=== PATIENT | male | born 1965 | race African-American/Black ===

== ENCOUNTER 2017-02-03 23:32 | Emergency (ER) | payer MEDICAID ==
[~2017-02-03] VITALS: Ht 188 cm; Wt 134.0 kg
[~2017-02-03 23:32] MED LIST: AMIODARONE PO; CARV12.545 PO; CHOL100026 PO; FERR-63 PO; FURO20TA4 PO; LOSA50TA20 PO; RIVA20TA PO
[2017-02-04 01:18] LABS: BASOPHILS % 0.9 % (0.0-2.0); EOSINOPHILS % 1.4 % (0.0-5.0); HEMATOCRIT. 41.2 % (42.0-52.0); HEMOGLOBIN. 13.4 g/dL (14.0-18.0); LYMPHOCYTES % 23.3 % (20.0-50.0); MEAN CORPUSCULAR HGB CONC 32.5 g/dL (31.0-37.0); MEAN CORPUSCULAR VOLUME 95.4 fL (80.0-94.0); MEAN PLATELET VOLUME 7.4 fl (7.4-10.4); MONOCYTES % 8.1 % (2.0-8.0); NEUTROPHILS % 66.3 % (40.0-76.0); PLATELET 126 x1000/uL (130-400); RED BLOOD CELL COUNT 4.32 mill/uL (4.7-6.1); RED CELL DISTRIBUTION WIDTH 13.8 % (11.6-14.6); WHITE BLOOD COUNT 6.6 x1000/uL (4.5-11.0)
[2017-02-04 01:22] LABS: CHLORIDE 106 mEq/L (98-107); INDEX HEMOLYSI 3 (1-3); INDEX ICTERIC 1 (1-4); INDEX LIPEMIC 1 (1-3)
[2017-02-04 01:24] LABS: INR 1.2; PROTHROMBIN TIME 12.8 sec
[2017-02-04 01:35] LABS: ALANINE AMINOTRANSFERASE 25 IU/L (13-61); ALBUMIN 3.6 g/dL (3.4-5.0); ANION GAP 10; CALCIUM 8.9 mg/dL (8.5-10.1); CARBON DIOXIDE 28 mEq/L (21-32); NT PRO B-TYPE NATRIURETIC PEP 1587 pg/mL (5-125); UREA NITROGEN BLOOD 27 mg/dL (7-21); eGFR 39 mL/min (>60)
[2017-02-04] MEDS ORDERED: CYCLOBENZAPRINE 10MG TABLET PO ONE (01:45)
[2017-02-04] MEDS ORDERED: ACETAMINOPHEN WITH CODEINE 300/30MG TABLET PO ONE (01:45)
[2017-02-04 02:34] VITALS: BP 138/84
== END 2017-02-04 07:49 | disposition home or self-care (01) ==
LOC: ER 02-04 07:49
DX: H11.31 Conjunctival hemorrhage, right eye (principal); Z79.899 Other long term (current) drug therapy; I11.0 Hypertensive heart disease with heart failure; I50.9 Heart failure, unspecified
CPT/HCPCS: 36415; 71010; 80053; 83880; 85025; 85610; 93005; 99285; Z7610

== ENCOUNTER 2017-05-01 05:30 | Inpatient (IN) | payer MEDICAID ==
[2017-05-01] VITALS (7 sets, daily range): BP systolic 137–166; BP diastolic 92–108
[~2017-05-01] VITALS: Ht 188 cm; Wt 136.1 kg
[~2017-05-01 05:30] MED LIST changes: +ACET1TAB12 PO; -LOSA50TA20 PO; +SPIR25TA4 PO; +[UNRECOGNIZED DRUG - OTHER] PO
[2017-05-01 06:20] LABS: CLARITY URINE CLEAR (CLEAR); COLOR URINE YELLOW (YELLOW); GLUCOSE URINE NEGATIVE (NEGATIVE); KETONES URINE NEGATIVE (NEGATIVE); LEUKOCYTE ESTERASE URINE NEGATIVE (NEGATIVE); NITRITE URINE NEGATIVE (NEGATIVE); OCCULT BLOOD URINE NEGATIVE (NEGATIVE); PH URINE 5.5 (4.5-8.0); PROTEIN URINE NEGATIVE (NEGATIVE); SPECIFIC GRAVITY URINE 1.024 (1.005-1.030); UROBILINOGEN URINE 0.2 E.U./dL (0.2-1.0)
[2017-05-01 06:21] LABS: HEMATOCRIT. 37.7 % (42.0-52.0); HEMOGLOBIN. 12.5 g/dL (14.0-18.0); MEAN CORPUSCULAR HEMOGLOBIN 31.1 pg (28.0-32.0); MEAN CORPUSCULAR VOLUME 93.6 fL (80.0-94.0); MEAN PLATELET VOLUME 7.9 fl (7.4-10.4); PLATELET 140 x1000/uL (130-400); RED BLOOD CELL COUNT 4.03 mill/uL (4.7-6.1); RED CELL DISTRIBUTION WIDTH 13.8 % (11.6-14.6)
[2017-05-01] MEDS ORDERED: SODIUM CHLORIDE 0.9% 1,000 ML IV SCH (06:40)
[2017-05-01 06:49] LABS: INR 1.1; PARTIAL THROMBOPLASTIN TIME 27.3 sec (24.0-34.0); PROTHROMBIN TIME 10.9 sec
[2017-05-01] MEDS ORDERED: BUPIVACAINE/EPINEPH/PF 0.25%/0.0005 10ML ONE (06:58)
[2017-05-01] MEDS ORDERED: MORPHINE SULFATE/PF 1MG/ML 10ML AMP ONE (06:58)
[2017-05-01] MEDS ORDERED: BACITRACIN 50,000 UNITS/VIAL ONE (06:58)
[2017-05-01] MEDS ORDERED: NORMAL SALINE 0.9% 10 ML SYR ONE (06:59)
[2017-05-01 07:07] LABS: PLATELET ESTIMATE NORMAL
[2017-05-01] MEDS ORDERED: MIDAZOLAM HCL 2 MG/2 ML VIAL ONE (07:44)
[2017-05-01] MEDS ORDERED: FENTANYL CITRATE/PF 50MCG/ML 2ML VIAL ONE ×2 (07:45→09:02)
[2017-05-01] MEDS ORDERED: LIDOCAINE HCL 1% 20ML VIAL (Pyxis) INJ ONE (07:47)
[2017-05-01] MEDS ORDERED: PROPOFOL 200MG/20ML VIAL IV ONE (07:47)
[2017-05-01] MEDS ORDERED: SUCCINYLCHOLINE CHLORIDE 200MG/10ML VIAL IV ONE (07:48)
[2017-05-01] MEDS ORDERED: CEFAZOLIN SODIUM 1000MG/VIAL ONE ×2 (08:05→08:07)
[2017-05-01] MEDS ORDERED: DEXAMETHASONE 4MG/ML 1ML VIAL ONE (08:08)
[2017-05-01] MEDS ORDERED: ONDANSETRON HCL 4MG/2ML VIAL ONE (08:08)
[2017-05-01] MEDS ORDERED: EPHEDRINE SULFATE 50MG/ML VIAL ONE (08:09)
[2017-05-01] MEDS ORDERED: ROCURONIUM BROMIDE 10MG/ML VIAL 5ML IV ONE ×2 (08:12→08:50)
[2017-05-01] MEDS ORDERED: ACETAMINOPHEN 325MG TABLET PO PRN (08:15)
[2017-05-01] MEDS ORDERED: ONDANSETRON HCL 4MG/2ML VIAL IV PRN (08:15)
[2017-05-01] MEDS ORDERED: HYDROCODONE/ACETAMINOPHEN 10/325MG TABLET PO PRN ×2 (08:15)
[2017-05-01] MEDS ORDERED: ALBUMIN HUMAN 12.5G/250ML (5%) IV ONE (08:42)
[2017-05-01] MEDS ORDERED: ENOXAPARIN 40MG/0.4ML SYR SUBCUT SCH (09:00)
[2017-05-01] MEDS ORDERED: SKIN ADHESIVE 0.7 GM EA TOP ONE (09:56)
[2017-05-01] MEDS ORDERED: NEOSTIGMINE METHYLSULFATE 1MG/ML 10 ML VIAL ONE (10:14)
[2017-05-01] MEDS ORDERED: GLYCOPYRROLATE 0.2 MG/ML 2ML VIAL ONE (10:14)
[2017-05-01] MEDS: HYDROMORPHONE HCL/PF 2MG/ML CPJ IV PRN ×2 (11:21→11:32)
[2017-05-01] MEDS: MORPHINE SULFATE 4 MG/ML CPJ (NOT FOR IM USE) IV PRN ×2 (14:40→17:45)
[2017-05-01] MEDS ORDERED: ZOLPIDEM TARTRATE 5MG TABLET PO PRN (16:00)
[2017-05-01] MEDS: CARVEDILOL 25MG TABLET PO SCH ×2 (17:42→21:11)
[2017-05-01] MEDS: CEFAZOLIN 2,000 MG in DEXT 5% WATER 100 ML IV SCH (17:50)
[2017-05-01] MEDS: ENOXAPARIN 30MG/0.3ML SYR SUBCUT SCH (21:10)
[2017-05-02] VITALS (10 sets, daily range): BP systolic 125–171; BP diastolic 78–110
[2017-05-02] MEDS: CEFAZOLIN 2,000 MG in DEXT 5% WATER 100 ML IV SCH ×2 (00:27→09:39)
[2017-05-02] MEDS: CLONIDINE 0.1MG TABLET PO PRN ×2 (00:27→06:06)
[2017-05-02] MEDS: MORPHINE SULFATE 4 MG/ML CPJ (NOT FOR IM USE) IV PRN ×4 (04:43→21:49)
[2017-05-02 06:00] LABS: HEMATOCRIT. 39.6 % (42.0-52.0); MEAN CORPUSCULAR HEMOGLOBIN 30.9 pg (28.0-32.0); MEAN CORPUSCULAR VOLUME 94.1 fL (80.0-94.0); MEAN PLATELET VOLUME 7.6 fl (7.4-10.4); PLATELET 141 x1000/uL (130-400); RED BLOOD CELL COUNT 4.21 mill/uL (4.7-6.1); RED CELL DISTRIBUTION WIDTH 13.7 % (11.6-14.6)
[2017-05-02] MEDS ORDERED: SPIRONOLACTONE 25MG TABLET PO SCH (09:00)
[2017-05-02] MEDS: CARVEDILOL 25MG TABLET PO SCH ×2 (09:39→21:39)
[2017-05-02] MEDS: ENOXAPARIN 30MG/0.3ML SYR SUBCUT SCH ×3 (09:41→21:40)
[2017-05-02] MEDS ORDERED: SODIUM POLYSTYRENE SULFONATE 15 G/60 ML BOT PO NR (13:00)
[2017-05-02 14:33] LABS: PLATELET ESTIMATE NORMAL
[2017-05-02 16:06] LABS: CREATINE KINASE 95 IU/L (39-308)
[2017-05-03] VITALS (8 sets, daily range): BP systolic 100–144; BP diastolic 51–94
[2017-05-03 06:05] LABS: BASOPHILS % 0.1 % (0.0-2.0); EOSINOPHILS % 0.1 % (0.0-5.0); HEMATOCRIT. 37.7 % (42.0-52.0); HEMOGLOBIN. 12.6 g/dL (14.0-18.0); LYMPHOCYTES % 7.6 % (20.0-50.0); MEAN CORPUSCULAR HEMOGLOBIN 31.2 pg (28.0-32.0); MEAN CORPUSCULAR VOLUME 93.4 fL (80.0-94.0); MONOCYTES % 13.1 % (2.0-8.0); NEUTROPHILS % 79.1 % (40.0-76.0); PLATELET 122 x1000/uL (130-400); RED BLOOD CELL COUNT 4.04 mill/uL (4.7-6.1); RED CELL DISTRIBUTION WIDTH 13.8 % (11.6-14.6)
[2017-05-03] MEDS: CARVEDILOL 25MG TABLET PO SCH (08:04)
[2017-05-03] MEDS: ENOXAPARIN 30MG/0.3ML SYR SUBCUT SCH (08:05)
[2017-05-03] MEDS: MORPHINE SULFATE 4 MG/ML CPJ (NOT FOR IM USE) IV PRN (10:50)
[2017-05-03] MEDS ORDERED: AMIODARONE HCL 200 MG TABLET PO SCH (12:15)
[2017-05-04] MEDS ORDERED: FUROSEMIDE 20MG TABLET PO SCH (09:00)
[2017-05-05 11:18] LABS: ANTI-NUCLEAR ANTIBODIES DIRECT Negative (Negative)
[2017-05-06 07:22] LABS: COMPLEMENT C3 169 mg/dL (82-167)
== END 2017-05-03 15:25 | disposition home or self-care (01) | DRG 315 ==
LOC: OR 05:30 → 3WST 05:31
PROVIDERS: ADMIT Hospitalist; ATTEND Hospitalist
PROC: 0LQ20ZZ Repair Left Shoulder Tendon, Open Approach (ICD-10-PCS; principal; 2017-05-01 07:30)
DX: M75.102 Unspecified rotator cuff tear or rupture of left shoulder, not specified as traumatic (principal); I42.0 Dilated cardiomyopathy; N17.9 Acute kidney failure, unspecified; I13.0 Hypertensive heart and chronic kidney disease with heart failure and stage 1 through stage 4 chronic kidney disease, or unspecified chronic kidney disease; I50.22 Chronic systolic (congestive) heart failure; N18.3 Chronic kidney disease, stage 3 (moderate); Z60.2 Problems related to living alone; E66.9 Obesity, unspecified; E87.5 Hyperkalemia; Z86.73 Personal history of transient ischemic attack (TIA), and cerebral infarction without residual deficits; Z79.899 Other long term (current) drug therapy; Z68.38 Body mass index [BMI] 38.0-38.9, adult; Z95.810 Presence of automatic (implantable) cardiac defibrillator; Z88.8 Allergy status to other drugs, medicaments and biological substances
CPT/HCPCS: 36415; 76770; 80048; 81003; 82550; 85025; 85610; 85730; 86038; 86160; 93005; 97162; 97166; A4216; A4565; J0171; J0330; J0690; J1100; J1170; J1650; J2250; J2270; J2274; J2405; J2704; J2710; J3010; J3490; J7030; J7040; J7060; P9041

== ENCOUNTER 2017-05-05 18:58 | Emergency (ER) | payer MEDICAID ==
[~2017-05-05] VITALS: Ht 188 cm; Wt 135.0 kg
[~2017-05-05 18:58] MED LIST changes: -CHOL100026 PO; +CHOL100044 PO
[2017-05-05 21:59] VITALS: BP 145/81
[2017-05-05] MEDS ORDERED: HYDROCODONE/ACETAMINOPHEN 5/325MG TABLET PO ONE (22:00)
== END 2017-05-05 22:25 | disposition home or self-care (01) ==
LOC: ER 18:58
DX: M25.512 Pain in left shoulder (principal); G89.18 Other acute postprocedural pain; I11.0 Hypertensive heart disease with heart failure; I50.9 Heart failure, unspecified; Z79.899 Other long term (current) drug therapy; Z79.01 Long term (current) use of anticoagulants; Z95.0 Presence of cardiac pacemaker; Z88.6 Allergy status to analgesic agent
CPT/HCPCS: 99283

== ENCOUNTER → 2018-03-17 | Day surgery (SDC) | payer MEDICAID ==
[~2018-03-17] VITALS: Ht 188 cm; Wt 149.7 kg
[~2018-03-17] MED LIST changes: +BUPIVACAINE HCL/EPINEPHRINE/PF 0.5%/0.0005 10ML ONE; +CEFAZOLIN SODIUM 1000MG/VIAL ONE; +DEXAMETHASONE 4MG/ML 1ML VIAL ONE; +EPHEDRINE SULFATE 50MG/ML VIAL ONE; +FENTANYL CITRATE/PF 50MCG/ML 2ML VIAL ONE; +HYDROCODONE/ACETAMINOPHEN 10/325MG TABLET PO PRN; +LIDOCAINE HCL 1% 20ML VIAL (Pyxis) INJ ONE; +METOCLOPRAMIDE HCL 10MG/2ML VIAL ONE; +MIDAZOLAM HCL 2 MG/2 ML VIAL ONE; +MORPHINE SULFATE 4 MG/ML CPJ (NOT FOR IM USE) IV PRN; +MORPHINE SULFATE/PF 1MG/ML 10ML AMP ONE; +ONDANSETRON HCL 4MG/2ML VIAL ONE; +PHENYLEPHRINE HCL 10 MG/ML 1ML (IV VIAL) IV ONE; +PROPOFOL 200MG/20ML VIAL IV ONE; +ROCURONIUM BROMIDE 10MG/ML VIAL 5ML IV ONE; +SITA50TA3 PO; +SODIUM CHLORIDE 0.9% 1,000 ML IV SCH
[2018-03-17 07:03] LABS: INR 1.1; PARTIAL THROMBOPLASTIN TIME 26.7 sec (23.4-31.0); PROTHROMBIN TIME 10.9 sec (9.4-11.6)
[2018-03-17 10:10] VITALS: BP 128/70
== END | disposition home or self-care (01) ==
LOC: OR 05:55
PROVIDERS: ATTEND Orthopaedic Surgery
DX: M65.862 Other synovitis and tenosynovitis, left lower leg (principal); M22.42 Chondromalacia patellae, left knee; E66.01 Morbid (severe) obesity due to excess calories; Z96.89 Presence of other specified functional implants; I12.9 Hypertensive chronic kidney disease with stage 1 through stage 4 chronic kidney disease, or unspecified chronic kidney disease; E11.22 Type 2 diabetes mellitus with diabetic chronic kidney disease; N18.2 Chronic kidney disease, stage 2 (mild); Z98.890 Other specified postprocedural states; Z86.73 Personal history of transient ischemic attack (TIA), and cerebral infarction without residual deficits; I42.9 Cardiomyopathy, unspecified; Z88.8 Allergy status to other drugs, medicaments and biological substances
CPT/HCPCS: 36415; 82962; 85610; 85730; 88304; 88311; 97116; 97162; J0171; J0690; J1100; J2250; J2270; J2274; J2370; J2405; J2704; J2765; J3010; J3490; J7030; L1830

== ENCOUNTER 2018-12-18 17:43 | Emergency (ER) | payer MEDICARE, MEDICAID ==
[~2018-12-18] VITALS: Ht 188 cm; Wt 152.0 kg
[~2018-12-18 17:43] MED LIST changes: -BUPIVACAINE HCL/EPINEPHRINE/PF 0.5%/0.0005 10ML ONE; -CEFAZOLIN SODIUM 1000MG/VIAL ONE; -DEXAMETHASONE 4MG/ML 1ML VIAL ONE; -EPHEDRINE SULFATE 50MG/ML VIAL ONE; -FENTANYL CITRATE/PF 50MCG/ML 2ML VIAL ONE; -HYDROCODONE/ACETAMINOPHEN 10/325MG TABLET PO PRN; -LIDOCAINE HCL 1% 20ML VIAL (Pyxis) INJ ONE; -METOCLOPRAMIDE HCL 10MG/2ML VIAL ONE; -MIDAZOLAM HCL 2 MG/2 ML VIAL ONE; -MORPHINE SULFATE 4 MG/ML CPJ (NOT FOR IM USE) IV PRN; -MORPHINE SULFATE/PF 1MG/ML 10ML AMP ONE; -ONDANSETRON HCL 4MG/2ML VIAL ONE; -PHENYLEPHRINE HCL 10 MG/ML 1ML (IV VIAL) IV ONE; -PROPOFOL 200MG/20ML VIAL IV ONE; -ROCURONIUM BROMIDE 10MG/ML VIAL 5ML IV ONE; -SODIUM CHLORIDE 0.9% 1,000 ML IV SCH; -SPIR25TA4 PO; +SPIR25TA6 PO
[2018-12-18] MEDS ORDERED: DIAZEPAM 5 MG TABLET PO ONE (19:00)
[2018-12-18] MEDS ORDERED: TRAMADOL 50MG TABLET PO ONE (19:00)
[2018-12-18 20:24] VITALS: BP 110/68
== END 2018-12-18 20:29 | disposition home or self-care (01) ==
LOC: ER 18:54
DX: M54.40 Lumbago with sciatica, unspecified side (principal); I11.0 Hypertensive heart disease with heart failure; I50.9 Heart failure, unspecified; Z95.0 Presence of cardiac pacemaker; Z79.899 Other long term (current) drug therapy; Z88.6 Allergy status to analgesic agent
CPT/HCPCS: 99283

== ENCOUNTER 2019-05-25 08:38 | Emergency (ER) | payer MEDICARE, MEDICAID ==
[~2019-05-25] VITALS: Ht 188 cm; Wt 129.0 kg
[2019-05-25] MEDS ORDERED: CALC0.253 PO (08:53)
[2019-05-25] MEDS ORDERED: LORA10TA7 PO (08:53)
[2019-05-25] MEDS ORDERED: DIPH25TA23 PO (08:53)
[2019-05-25] MEDS ORDERED: PANTOPRAZOLE (08:53)
[2019-05-25] MEDS ORDERED: CALC667T6 PO (08:53)
[2019-05-25] MEDS ORDERED: LINA5TAB PO (08:53)
[2019-05-25] MEDS ORDERED: APIX5TAB PO (08:53)
[2019-05-25 11:43] VITALS: BP 129/74
== END 2019-05-25 11:44 | disposition home or self-care (01) ==
LOC: ER 08:46
DX: R05 Cough (principal); I11.0 Hypertensive heart disease with heart failure; I50.9 Heart failure, unspecified; Z87.39 Personal history of other diseases of the musculoskeletal system and connective tissue; Z79.899 Other long term (current) drug therapy; Z95.0 Presence of cardiac pacemaker
CPT/HCPCS: 71045; 93005; 99283

== ENCOUNTER 2020-06-02 10:35 | Emergency (ER) | payer MEDICARE, MEDICAID ==
[~2020-06-02] VITALS: Ht 188 cm; Wt 154.4 kg
[~2020-06-02 10:35] MED LIST changes: +APIX5TAB PO; +CALC0.253 PO; +CALC667T6 PO; +DIPH25TA23 PO; +LINA5TAB PO; +LORA10TA7 PO; +PANTOPRAZOLE
[2020-06-02 10:37] VITALS: BP 151/93
[2020-06-02 11:27] LABS: HEMATOCRIT. 41.4 % (42.0-52.0); HEMOGLOBIN. 13.5 g/dL (14.0-18.0); MEAN CORPUSCULAR HEMOGLOBIN 29.6 pg (28.0-32.0); MEAN CORPUSCULAR VOLUME 90.8 fL (80.0-94.0); MEAN PLATELET VOLUME 7.7 fl (7.4-10.4); PLATELET 148 x1000/uL (130-400); RED BLOOD CELL COUNT 4.56 mill/uL (4.7-6.1); RED CELL DISTRIBUTION WIDTH 17.2 % (11.6-14.6)
[2020-06-02 11:39] LABS: INR 1.1; PARTIAL THROMBOPLASTIN TIME 31.7 sec (23.4-31.0); PROTHROMBIN TIME 11.1 sec (9.6-11.0)
[2020-06-02 12:02] LABS: PLATELET ESTIMATE NORMAL
== END 2020-06-02 12:15 | disposition home or self-care (01) ==
LOC: ER 10:35
DX: S30.813A Abrasion of scrotum and testes, initial encounter (principal); I11.0 Hypertensive heart disease with heart failure; I50.9 Heart failure, unspecified; E11.9 Type 2 diabetes mellitus without complications; Z79.899 Other long term (current) drug therapy; X58.XXXA Exposure to other specified factors, initial encounter; Y93.89 Activity, other specified; Y92.89 Other specified places as the place of occurrence of the external cause; Y99.8 Other external cause status
CPT/HCPCS: 36415; 85025; 99283

== ENCOUNTER 2021-09-13 06:10 | Inpatient (IN) | payer MEDICARE, MEDICAID ==
[~2021-09-13] VITALS: Ht 188 cm; Wt 161.5 kg
[2021-09-13] VITALS (8 sets, daily range): BP systolic 122–135; BP diastolic 72–94
[~2021-09-13 06:10] MED LIST changes: -DIPH25TA23 PO; -FERR-63 PO; -LORA10TA7 PO; -PANTOPRAZOLE; -RIVA20TA PO; -SITA50TA3 PO
[2021-09-13 07:17] LABS: HEMATOCRIT 40.7 % (42.0-52.0); HEMOGLOBIN 12.7 g/dL (14.0-18.0); MEAN CORPUSCULAR HEMOGLOBIN 26.6 pg (28.0-32.0); MEAN CORPUSCULAR VOLUME 85.3 fL (80.0-94.0); PLATELET 137 x1000/uL (130-400); RED BLOOD CELL COUNT 4.77 mill/uL (4.7-6.1)
[2021-09-13] MEDS ORDERED: ATOR40TA70 MT (07:28)
[2021-09-13 07:43] LABS: PARTIAL THROMBOPLASTIN TIME 28.3 sec (23.4-31.0)
[2021-09-13] MEDS ORDERED: PROPOFOL 200MG/20ML VIAL IV ONE (08:13)
[2021-09-13] MEDS ORDERED: GENTAMICIN SULF 40MG/ML 2ML VIAL ONE (08:13)
[2021-09-13] MEDS ORDERED: CEFAZOLIN SODIUM 1000MG/VIAL ONE (08:14)
[2021-09-13] MEDS ORDERED: LIDOCAINE HCL 1% 20ML VIAL (Pyxis) INJ ONE (08:14)
[2021-09-13] MEDS ORDERED: HEPARIN 1,000 UNITS PREMIX 0 ML IV ONE (08:14)
[2021-09-13] MEDS ORDERED: METOCLOPRAMIDE HCL 10MG/2ML VIAL ONE (08:18)
[2021-09-13] MEDS ORDERED: LIDOCAINE HCL/PF 1% 10 MG/ML 5ML VIAL ONE (08:18)
[2021-09-13] MEDS ORDERED: ONDANSETRON HCL 4MG/2ML INJ ONE (08:18)
[2021-09-13] MEDS ORDERED: MIDAZOLAM HCL 2 MG/2 ML VIAL ONE (08:20)
[2021-09-13] MEDS ORDERED: SODIUM CHLORIDE 0.9% 10ML VIAL ONE (08:22)
[2021-09-13] MEDS ORDERED: PHENYLEPHRINE HCL 10 MG/ML 1ML (IV VIAL) IV ONE (08:22)
[2021-09-13] MEDS ORDERED: GENTAMICIN/NS IRRIGATION 500 ML IR ONE (08:42)
[2021-09-13] MEDS ORDERED: HYDROCODONE/ACETAMINOPHEN 5/325MG TABLET PO PRN (10:45)
[2021-09-13] MEDS ORDERED: NALOXONE HCL 0.4MG/ML VIAL IV PRN (13:30)
[2021-09-13] MEDS: CEFAZOLIN 1000MG PREMIX 50 ML IV SCH (16:31)
[2021-09-13] MEDS: CARVEDILOL 12.5MG TABLET PO SCH (20:54)
[2021-09-13] MEDS ORDERED: ATORVASTATIN CALCIUM 40MG TABLET PO SCH (21:00)
[2021-09-14] VITALS (9 sets, daily range): BP systolic 122–158; BP diastolic 67–99
[2021-09-14] MEDS: CEFAZOLIN 1000MG PREMIX 50 ML IV SCH (00:05)
[2021-09-14] MEDS: CARVEDILOL 12.5MG TABLET PO SCH (08:21)
[2021-09-14 08:28] LABS: BASOPHILS % 0.3 % (0.0-2.0); EOSINOPHILS % 0.9 % (0.0-5.0); HEMATOCRIT. 39.4 % (42.0-52.0); HEMOGLOBIN. 11.9 g/dL (14.0-18.0); LYMPHOCYTES % 10.5 % (20.0-50.0); MEAN CORPUSCULAR HEMOGLOBIN 26.2 pg (28.0-32.0); MEAN PLATELET VOLUME 8.4 fl (7.4-10.4); NEUTROPHILS % 79.3 % (40.0-76.0); PLATELET 125 x1000/uL (130-400); RED BLOOD CELL COUNT 4.53 mill/uL (4.7-6.1); RED CELL DISTRIBUTION WIDTH 18.9 % (11.6-14.6)
[2021-09-14 08:54] LABS: CHLORIDE 105 mEq/L (98-107)
[2021-09-14] MEDS ORDERED: SPIRONOLACTONE 25MG TABLET PO SCH (09:00)
[2021-09-14] MEDS ORDERED: SPIRONOLACTONE 5MG/ML 1ML ORAL SYR(NEO) PO SCH (09:00)
[2021-09-14] MEDS ORDERED: LINAGLIPTIN 5MG TABLET PO SCH (09:00)
[2021-09-14] MEDS ORDERED: FUROSEMIDE 20MG TABLET PO SCH (09:00)
[2021-09-14] MEDS ORDERED: AMIODARONE HCL 200 MG TABLET PO SCH (09:00)
[2021-09-14] MEDS ORDERED: APIXABAN 5 MG TABLET PO SCH (09:00)
[2021-09-14 09:01] LABS: PHOSPHORUS 3.5 mg/dL (2.5-4.9)
== END 2021-09-14 15:30 | disposition home or self-care (01) | DRG 245 ==
LOC: CCL 06:10 → 3WST 06:11
PROVIDERS: ADMIT Internal Medicine Clinical Cardiac Electrophysiology; ATTEND Internal Medicine Clinical Cardiac Electrophysiology
PROC: 0JPT0PZ Removal of Cardiac Rhythm Related Device from Trunk Subcutaneous Tissue and Fascia, Open Approach (ICD-10-PCS; principal; 2021-09-13)
PROC: 0JH608Z Insertion of Defibrillator Generator into Chest Subcutaneous Tissue and Fascia, Open Approach (ICD-10-PCS; 2021-09-13)
PROC: 02PA0MZ Removal of Cardiac Lead from Heart, Open Approach (ICD-10-PCS; 2021-09-13)
PROC: 4A0234Z Measurement of Cardiac Electrical Activity, Percutaneous Approach (ICD-10-PCS; 2021-09-13)
DX: I42.8 Other cardiomyopathies (principal); I47.2 Ventricular tachycardia; I50.22 Chronic systolic (congestive) heart failure; Z68.42 Body mass index [BMI] 45.0-49.9, adult; I13.0 Hypertensive heart and chronic kidney disease with heart failure and stage 1 through stage 4 chronic kidney disease, or unspecified chronic kidney disease; N17.9 Acute kidney failure, unspecified; I44.7 Left bundle-branch block, unspecified; E66.01 Morbid (severe) obesity due to excess calories; I48.0 Paroxysmal atrial fibrillation; D64.9 Anemia, unspecified; Z96.652 Presence of left artificial knee joint; J45.909 Unspecified asthma, uncomplicated; E78.5 Hyperlipidemia, unspecified; M19.90 Unspecified osteoarthritis, unspecified site; N18.30 Chronic kidney disease, stage 3 unspecified; E11.22 Type 2 diabetes mellitus with diabetic chronic kidney disease; Z86.73 Personal history of transient ischemic attack (TIA), and cerebral infarction without residual deficits; Z83.3 Family history of diabetes mellitus; Z87.891 Personal history of nicotine dependence; Z95.0 Presence of cardiac pacemaker
CPT/HCPCS: 33264; 36415; 71045; 80048; 80053; 83735; 83970; 84100; 84443; 85025; 85027; 93005; 93640; C1882; C1893; J0690; J1580; J1644; J2250; J2370; J2405; J2704; J2765; J3490